=== PATIENT | male | born 1930 | race Caucasian/White ===

== ENCOUNTER 2020-05-14 08:51 | Inpatient (IN) | payer MEDICARE ==
[2020-05-14 10:44] VITALS: BP 124/81
[2020-05-14] MEDS ORDERED: Maalox 30 mL Cup PO PRN (10:46)
[2020-05-14] MEDS ORDERED: Magnesium Hydroxide (MOM) 30 mL UDC PO PRN (10:46)
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
[2020-05-14] MEDS ORDERED: GLUCAGON HCl 1 MG KIT IM PRN (19:57)
[2020-05-14] MEDS: INSULIN LISPRO SLIDING SCALE 100 UNITS/ML UNIT SUBQ SCH (20:58)
[2020-05-14] MEDS ORDERED: INSULIN LISPRO SLIDING SCALE 100 UNITS/ML UNIT SUBQ SCH (21:00)
--- NOTE | 2020-05-14 21:07 | History & Physical ---
ADMIT DATE: HISTORY OF PRESENT ILLNESS: The patient is an 89-year-old male with long history of diabetes mellitus, hypertension, dementia, admitted to [facility] under Dr. Arias's service for evaluation and treatment. The patient denies any chest pain, shortness of breath, nausea, vomiting, fever or chills. PAST MEDICAL HISTORY: Significant for diabetes mellitus, hypertension, gastroesophageal reflux and dementia. PAST SURGICAL HISTORY: No recent surgery. MEDICATIONS: Follow admission reconciliation. ALLERGIES: The patient denies any allergies. SOCIAL HISTORY: No smoking, no alcohol, no drug. FAMILY HISTORY: Noncontributory. REVIEW OF SYSTEMS: RENAL SYSTEM: No history of chronic renal disorder. CARDIOVASCULAR SYSTEM: He has history of hypertension. ENDOCRINE SYSTEM: He has history of diabetes mellitus. GASTROINTESTINAL SYSTEM: Significant for gastroesophageal reflux. NEUROLOGICAL SYSTEM: No seizure disorder. SKELETOMUSCULAR SYSTEM: No muscular dystrophy. HEMATOLOGICAL SYSTEM: No bleeding tendency. RESPIRATORY SYSTEM: No asthma. GENITOURINARY: No dysuria or hematuria. PHYSICAL EXAMINATION: GENERAL: He is awake, alert, mildly confused. VITAL SIGNS: Temperature is 97.4, heart rate 96, blood pressure is 136/68. HEENT: Normocephalic. Pupils reacting equal to light and accommodation. Sclerae clear. NECK: Supple. Negative for lymphadenopathy, JVD or bruit. CHEST: Entry of air bilaterally normal. No rhonchi or wheezing. HEART: S1, S2 normal. No murmurs, rubs or gallop rhythm. ABDOMEN: Soft, bowel sounds positive. EXTREMITIES: No edema. BACK: Normal vertebra. SKIN: Intact. GENITALIA AND RECTAL: No complaint done by primary physician. NEUROLOGIC: He is awake, alert, mildly confused. Cranial nerve #1: The patient is able to smell alcohol prep pad. Cranial nerve #2: The patient is able to read printed page. Cranial nerve #3: The patient is able to move eyeball upward and outward. Cranial nerve #4: The patient is able to move eyeball inward and downward. Cranial nerve #5: The patient able to clench teeth, has normal sensation to the forehead. Cranial nerve #6: The patient is able to move eyeball lateral on both sides. Cranial nerve #7: The patient move eyebrow upwards on both sides. Cranial nerve #8: The patient able to hear finger rubs on both sides. Cranial nerve #9: The patient has a normal gag reflex. Cranial nerve #10: The patient able to move soft palate upward on each side. Cranial nerve #11: The patient able to shrink shoulder on both sides. Cranial nerve # 12: The patient able to stick tongue straight forward. MOTOR AND SENSORY: Gait normal. Romberg normal. Muscle tone normal. Deep tendon reflexes normal. Plantar normal. Fhlmsc-kr-[id number] normal. Afji-im-zxab normal. Sensory normal. ASSESSMENT: 1. Hypertension. 2. Diabetes mellitus. 3. Gastroesophageal reflux. 4. Dementia. PLAN: The patient admitted to the hospital under Dr. Arias's service. Problems addressed during hospitalization are depression, dementia and psychosis. Medical problem addressed at discharge are hypertension, diabetes mellitus. The patient is medically stable for activity. Thank you, Dr. Arias, for asking me to see your patient. The patient will follow up with primary physician upon discharge. The patient is a full code. JOB# [id number]
[2020-05-15] MEDS: INSULIN LISPRO SLIDING SCALE 100 UNITS/ML UNIT SUBQ SCH ×4 (06:34→21:22)
[2020-05-15] MEDS: Pantoprazole 40 mg EC Tab PO SCH (08:19)
[2020-05-15] MEDS: Multivitamin Tab PO SCH (08:20)
[2020-05-15] MEDS: Timolol 0.25% Ophth Soln 5 mL Bottle EACH EYE SCH (08:31)
--- NOTE | 2020-05-15 20:31 | Progress Notes ---
DATE: 05/15/2020 PSYCHIATRIC PROGRESS NOTE Staff was spoken to. The patient is interviewed. Mood is noted to be irritable. Affect is constricted. Insight and judgment at this time are noted to be still impaired. Impulse control is noted to be limited. The patient is reported to have been displaying acute mood swings. One minute, she is going to be so nice; the next minute, he has been screaming and yelling. The patient's staff has spoken to the patient's family and this is the same kind of behavior the family has been experiencing at home and they said that they cannot deal with the patient any longer. In view of this one, it is decided to start the patient with risperidone 0.5 mg at bedtime and continue with the Depakote that he has been taking at 125 mg twice a day and follow the patient up with supportive therapy. The patient is not ready to be discharged to a lower level of care in view of his aggressive behavior and the patient is going to be closely monitored with the Depakote and Risperdal. JOB# [id number]
--- NOTE | 2020-05-15 20:35 | Internal Medicine Prog Note ---
Internal Medicine Subjective - Subjective Service Date: 05/15/20 Patient seen and examined:: without staff (HE FEELS WELL) Patient is:: awake, verbal, in bed, talking, confused Per staff patient has:: no adverse event Internal Medicine Objective - Results Recent Labs: Laboratory Last Values POC Glucose 146 MG/DL (70 - 105) H 05/14/20 09:11 - Physical Exam Vitals and I&O: Vital Signs Temp 99.6 F 05/15/20 14:00 Pulse 83 05/15/20 14:00 Resp 20 05/15/20 14:00 BP 140/79 05/15/20 14:00 Pulse Ox 98 05/15/20 14:00 Intake & Output 05/15/20 05/15/20 05/16/20 06:59 18:59 06:59 Intake Total 360 Output Total 300 Balance 360 -300 Intake: Oral 360 Output: Urine 300 Other: # Voids 2 # Bowel Movements 0 Active Medications: Current Medications Acetaminophen (Tylenol) 650 mg PO Q4H PRN PRN Reason: Pain (Mild 1-3) Stop: 07/13/20 10:45 Acetaminophen (Tylenol Extra Strength) 1,000 mg PO Q6H PRN PRN Reason: Pain (Moderate 4-6) Stop: 07/13/20 10:45 Al Hydrox/Mg Hydrox/Simethicone (Maalox) 30 ml PO Q4HR PRN PRN Reason: GI DISTRESS Stop: 07/13/20 10:45 Dextrose (Glutose 40%) 18.75 gm PO PRN PRN PRN Reason: Blood Glucose less than 70 Stop: 07/13/20 19:56 Divalproex Sodium (Depakote Dr) 125 mg PO Q12HR [facility]; Protocol Stop: 07/14/20 08:59 Last Admin: 05/15/20 13:25 Dose: 125 mg Glucagon (Glucagen) 1 mg IM PRN PRN PRN Reason: Blood Glucose less than 70 Stop: 07/13/20 19:56 Ibuprofen (Motrin) 400 mg PO Q4H PRN PRN Reason: Pain (Severe 7-10) Stop: 07/13/20 10:45 Insulin Human Lispro (Humalog Insulin Sliding Scale) 0 units SUBQ [facility]; Protocol Stop: 07/13/20 20:59 Last Admin: 05/15/20 16:32 Dose: Not Given Losartan Potassium (Cozaar) 100 mg PO DAILY [facility] Stop: 07/14/20 08:59 Last Admin: 05/15/20 08:25 Dose: 100 mg Magnesium Hydroxide (Milk Of Magnesia) 30 ml PO HS PRN PRN Reason: Constipation Multivitamins/Vitamin C (Theragran) 1 tab PO DAILY [facility] Stop: 07/14/20 08:59 Last Admin: 05/15/20 08:20 Dose: 1 tab Pantoprazole Sodium (Protonix) 40 mg PO DAILY [facility] Stop: 07/14/20 08:59 Last Admin: 05/15/20 08:19 Dose: 40 mg Risperidone (Risperdal) 0.5 mg PO HS [facility]; Protocol Stop: 07/14/20 20:59 Sitagliptin Phosphate (Januvia) 100 mg PO DAILY [facility] Stop: 07/14/20 08:59 Last Admin: 05/15/20 08:18 Dose: 100 mg Timolol Maleate (Timoptic 0.25% Oph Soln) 1 drop EACH EYE DAILY [facility] Stop: 07/14/20 08:59 Last Admin: 05/15/20 08:31 Dose: Not Given Zolpidem Tartrate (Ambien) 5 mg PO HS PRN PRN Reason: Insomnia Stop: 07/13/20 10:45 General: alert HEENT: NC/AT, PERRLA, EOMI, anicteric sclerae, throat clear Neck: Supple, No JVD, No thyromegaly, +2 carotid pulse wo bruit, No LAD Lungs: CTAB Cardiovascular: RRR, Normal S1, Normal S2, without murmur Abdomen: soft, non-tender, non-distended Extremities: clear Neurological: no change, gait stable Internal Medicine Assmt/Plan - Assessment Assessment: 1.HTN. 2.DM 3.DJD. 4.DEMENTIA - Plan Plan: CONTINUE ON CURRENT MEDICATION AND DIET
[2020-05-15] MEDS: Acetaminophen 500 MG TAB PO PRN (21:23)
[2020-05-16] MEDS: INSULIN LISPRO SLIDING SCALE 100 UNITS/ML UNIT SUBQ SCH ×4 (06:37→20:55)
[2020-05-16 07:26] LABS: A1C 8.9 % (4.8-5.6)
[2020-05-16] MEDS: Multivitamin Tab PO SCH (09:16)
[2020-05-16] MEDS: Pantoprazole 40 mg EC Tab PO SCH (09:16)
[2020-05-16] MEDS: Timolol 0.25% Ophth Soln 5 mL Bottle EACH EYE SCH (09:18)
--- NOTE | 2020-05-16 11:23 | Progress Notes ---
DATE: 05/16/2020 SUBJECTIVE: Staff was spoken to. The patient is interviewed. Mood is noted to be irritable. Affect is constricted, going on a tangent. Insight and judgment at this time are noted to be still impaired. Impulse control is noted to be limited. Coping skills are noted to be limited. The patient is not able to make much of any sense. The patient is going on a tangent. ASSESSMENT: The patient is still impulsive and psychotic. PLAN: To continue the patient with Risperdal and Depakote and closely monitor the patient's behavior. JOB# [id number]
--- NOTE | 2020-05-16 20:05 | Internal Medicine Prog Note ---
Internal Medicine Subjective - Subjective Service Date: 05/16/20 Patient seen and examined:: without staff (HE FEELS WELL) Patient is:: awake, verbal, in bed, talking, confused Per staff patient has:: no adverse event Internal Medicine Objective - Results Recent Labs: Laboratory Last Values POC Glucose 177 MG/DL (70 - 105) H 05/16/20 16:01 Hemoglobin A1c 8.9 % (4.8-5.6) H 05/14/20 13:20 - Physical Exam Vitals and I&O: Vital Signs Temp 98.3 F 05/16/20 15:17 Pulse 78 05/16/20 15:17 Resp 20 05/16/20 15:17 BP 132/78 05/16/20 15:17 Pulse Ox 95 05/16/20 15:17 Intake & Output 05/16/20 05/16/20 05/17/20 06:59 18:59 06:59 Intake Total 240 950 Balance 240 950 Intake: Oral 240 950 Other: # Voids 2 4 # Bowel Movements 0 0 Active Medications: Current Medications Acetaminophen (Tylenol) 650 mg PO Q4H PRN PRN Reason: Pain (Mild 1-3) Stop: 07/13/20 10:45 Acetaminophen (Tylenol Extra Strength) 1,000 mg PO Q6H PRN PRN Reason: Pain (Moderate 4-6) Stop: 07/13/20 10:45 Last Admin: 05/15/20 21:23 Dose: 1,000 mg Al Hydrox/Mg Hydrox/Simethicone (Maalox) 30 ml PO Q4HR PRN PRN Reason: GI DISTRESS Stop: 07/13/20 10:45 Dextrose (Glutose 40%) 18.75 gm PO PRN PRN PRN Reason: BS Below 70 if tolerate po Stop: 07/13/20 19:56 Divalproex Sodium (Depakote Dr) 125 mg PO Q12HR [facility]; Protocol Stop: 07/14/20 08:59 Last Admin: 05/16/20 09:18 Dose: 125 mg Glucagon (Glucagen) 1 mg IM PRN PRN PRN Reason: BS Below 70 if not tolerate po Stop: 07/13/20 19:56 Ibuprofen (Motrin) 400 mg PO Q4H PRN PRN Reason: Pain (Severe 7-10) Stop: 07/13/20 10:45 Insulin Human Lispro (Humalog Insulin Sliding Scale) 0 units SUBQ [facility]; Protocol Stop: 07/13/20 20:59 Last Admin: 05/16/20 16:21 Dose: 2 units Losartan Potassium (Cozaar) 100 mg PO DAILY [facility] Stop: 07/14/20 08:59 Last Admin: 05/16/20 09:16 Dose: 100 mg Magnesium Hydroxide (Milk Of Magnesia) 30 ml PO HS PRN PRN Reason: Constipation Multivitamins/Vitamin C (Theragran) 1 tab PO DAILY [facility] Stop: 07/14/20 08:59 Last Admin: 05/16/20 09:16 Dose: 1 tab Pantoprazole Sodium (Protonix) 40 mg PO DAILY [facility] Stop: 07/14/20 08:59 Last Admin: 05/16/20 09:16 Dose: 40 mg Risperidone (Risperdal) 0.5 mg PO HS [facility]; Protocol Stop: 07/14/20 20:59 Last Admin: 05/15/20 21:22 Dose: 0.5 mg Sitagliptin Phosphate (Januvia) 100 mg PO DAILY [facility] Stop: 07/14/20 08:59 Last Admin: 05/16/20 09:17 Dose: 100 mg Timolol Maleate (Timoptic 0.25% Oph Soln) 1 drop EACH EYE DAILY [facility] Stop: 07/14/20 08:59 Last Admin: 05/16/20 09:18 Dose: Not Given Zolpidem Tartrate (Ambien) 5 mg PO HS PRN PRN Reason: Insomnia Stop: 07/13/20 10:45 Last Admin: 05/15/20 21:24 Dose: 5 mg General: alert HEENT: NC/AT, PERRLA, EOMI, anicteric sclerae, throat clear Neck: Supple, No JVD, No thyromegaly, +2 carotid pulse wo bruit, No LAD Lungs: CTAB Cardiovascular: RRR, Normal S1, Normal S2, without murmur Abdomen: soft, non-tender, non-distended Extremities: clear Neurological: no change, gait stable Internal Medicine Assmt/Plan - Assessment Assessment: 1.HTN. 2.DM 3.DJD. 4.DEMENTIA - Plan Plan: CONTINUE ON CURRENT MEDICATION AND DIET
[2020-05-17] MEDS: INSULIN LISPRO SLIDING SCALE 100 UNITS/ML UNIT SUBQ SCH ×4 (06:30→20:56)
[2020-05-17] MEDS: Pantoprazole 40 mg EC Tab PO SCH (08:28)
[2020-05-17] MEDS: Multivitamin Tab PO SCH (08:28)
[2020-05-17] MEDS: Timolol 0.25% Ophth Soln 5 mL Bottle EACH EYE SCH (08:29)
[2020-05-17 10:30] LABS: CHOLESTEROL 224 mg/dL (<200); LDL CHOLESTEROL 161 mg/dL (0-129); TRIGLYCERIDES 178 mg/dL (30-150)
--- NOTE | 2020-05-17 20:34 | Internal Medicine Prog Note ---
Internal Medicine Subjective - Subjective Service Date: 05/17/20 Patient seen and examined:: without staff (HE FEELS WELL) Patient is:: awake, verbal, in bed, talking, confused Per staff patient has:: no adverse event Internal Medicine Objective - Results Recent Labs: Laboratory Last Values POC Glucose 133 MG/DL (70 - 105) H 05/17/20 20:13 Hemoglobin A1c 8.9 % (4.8-5.6) H 05/14/20 13:20 Triglycerides 178 mg/dL (30-150) H 05/14/20 13:20 Cholesterol 224 mg/dL (<200) H 05/14/20 13:20 LDL Cholesterol 161 mg/dL (0-129) H 05/14/20 13:20 HDL Cholesterol 40 mg/dL (>45) L 05/14/20 13:20 Coronavirus (PCR) NOT DETECTED (NOT DETECTD) 05/14/20 11:50 - Physical Exam Vitals and I&O: Vital Signs Temp 96.4 F 05/17/20 14:36 Pulse 84 05/17/20 14:36 Resp 20 05/17/20 14:36 BP 133/76 05/17/20 14:36 Pulse Ox 93 05/17/20 14:36 Intake & Output 05/17/20 05/17/20 05/18/20 06:59 18:59 06:59 Intake Total 240 Output Total 1 Balance 239 Intake: Oral 240 Output: Urine/Stool Mix 1 Other: # Voids 1 Active Medications: Current Medications Acetaminophen (Tylenol) 650 mg PO Q4H PRN PRN Reason: Pain (Mild 1-3) Stop: 07/13/20 10:45 Acetaminophen (Tylenol Extra Strength) 1,000 mg PO Q6H PRN PRN Reason: Pain (Moderate 4-6) Stop: 07/13/20 10:45 Last Admin: 05/15/20 21:23 Dose: 1,000 mg Al Hydrox/Mg Hydrox/Simethicone (Maalox) 30 ml PO Q4HR PRN PRN Reason: GI DISTRESS Stop: 07/13/20 10:45 Dextrose (Glutose 40%) 18.75 gm PO PRN PRN PRN Reason: BS Below 70 if tolerate po Stop: 07/13/20 19:56 Divalproex Sodium (Depakote Dr) 125 mg PO Q12HR [facility]; Protocol Stop: 07/14/20 08:59 Last Admin: 05/17/20 08:28 Dose: 125 mg Glucagon (Glucagen) 1 mg IM PRN PRN PRN Reason: BS Below 70 if not tolerate po Stop: 07/13/20 19:56 Ibuprofen (Motrin) 400 mg PO Q4H PRN PRN Reason: Pain (Severe 7-10) Stop: 07/13/20 10:45 Insulin Human Lispro (Humalog Insulin Sliding Scale) 0 units SUBQ [facility]; Protocol Stop: 07/13/20 20:59 Last Admin: 05/17/20 16:27 Dose: 4 units Losartan Potassium (Cozaar) 100 mg PO DAILY [facility] Stop: 07/14/20 08:59 Last Admin: 05/17/20 08:28 Dose: 100 mg Magnesium Hydroxide (Milk Of Magnesia) 30 ml PO HS PRN PRN Reason: Constipation Multivitamins/Vitamin C (Theragran) 1 tab PO DAILY [facility] Stop: 07/14/20 08:59 Last Admin: 05/17/20 08:28 Dose: 1 tab Pantoprazole Sodium (Protonix) 40 mg PO DAILY [facility] Stop: 07/14/20 08:59 Last Admin: 05/17/20 08:28 Dose: 40 mg Risperidone (Risperdal) 0.5 mg PO HS [facility]; Protocol Stop: 07/14/20 20:59 Last Admin: 05/16/20 20:56 Dose: 0.5 mg Sitagliptin Phosphate (Januvia) 100 mg PO DAILY [facility] Stop: 07/14/20 08:59 Last Admin: 05/17/20 08:28 Dose: 100 mg Timolol Maleate (Timoptic 0.25% Ophth Soln) 1 drop EACH EYE DAILY [facility] Stop: 07/14/20 08:59 Last Admin: 05/17/20 08:29 Dose: Not Given Zolpidem Tartrate (Ambien) 5 mg PO HS PRN PRN Reason: Insomnia Stop: 07/13/20 10:45 Last Admin: 05/15/20 21:24 Dose: 5 mg General: alert HEENT: NC/AT, PERRLA, EOMI, anicteric sclerae, throat clear Neck: Supple, No JVD, No thyromegaly, +2 carotid pulse wo bruit, No LAD Lungs: CTAB Cardiovascular: RRR, Normal S1, Normal S2, without murmur Abdomen: soft, non-tender, non-distended Extremities: clear Neurological: no change, gait stable Internal Medicine Assmt/Plan - Assessment Assessment: 1.HTN. 2.DM 3.DJD. 4.DEMENTIA - Plan Plan: CONTINUE ON CURRENT MEDICATION AND DIET
--- NOTE | 2020-05-17 22:55 | Progress Notes ---
DATE: 05/17/2020 PSYCHIATRIC PROGRESS NOTE SUBJECTIVE: Staff was spoken to. The patient is interviewed. Mood is noted to be irritable. Affect is constricted. Coping skills at this time are noted to be very poor. The patient has been having difficult time to cope with the stress. No side effects to the medications are noted. The patient is still very paranoid. Mood swings are being closely monitored for this patient. The patient has been noted to be getting easily irritable at times. ASSESSMENT: The patient is still paranoid and mood swings are a problem. PLAN: To continue the patient with the current medications and follow up. JOB# [id number]
[2020-05-18] MEDS: INSULIN LISPRO SLIDING SCALE 100 UNITS/ML UNIT SUBQ SCH ×4 (06:33→20:12)
[2020-05-18] MEDS: Pantoprazole 40 mg EC Tab PO SCH (08:54)
[2020-05-18] MEDS: Multivitamin Tab PO SCH (08:54)
[2020-05-18] MEDS: Timolol 0.25% Ophth Soln 5 mL Bottle EACH EYE SCH (09:00)
--- NOTE | 2020-05-18 21:00 | Progress Notes ---
DATE: 05/18/2020 Staff was spoken to. The patient is interviewed. Mood is noted to be irritable. Affect is constricted. Insight and judgment at this time are noted to be still impaired. Impulse control is noted to be limited. Coping skills are also noted to be limited. The patient has been having acute mood swings. The patient, however, is on a mood stabilizer and antipsychotic medication and has been able to tolerate the medication. Aggressive behavior is being closely monitored at this time. JOB# [id number]
--- NOTE | 2020-05-18 21:05 | Internal Medicine Prog Note ---
Internal Medicine Subjective - Subjective Service Date: 05/18/20 Patient seen and examined:: without staff (HE FEELS BETTER) Patient is:: awake, verbal, in bed, talking, confused Per staff patient has:: no adverse event Internal Medicine Objective - Results Recent Labs: Laboratory Last Values POC Glucose 217 MG/DL (70 - 105) H 05/18/20 19:38 Hemoglobin A1c 8.9 % (4.8-5.6) H 05/14/20 13:20 Triglycerides 178 mg/dL (30-150) H 05/14/20 13:20 Cholesterol 224 mg/dL (<200) H 05/14/20 13:20 LDL Cholesterol 161 mg/dL (0-129) H 05/14/20 13:20 HDL Cholesterol 40 mg/dL (>45) L 05/14/20 13:20 Coronavirus (PCR) NOT DETECTED (NOT DETECTD) 05/14/20 11:50 - Physical Exam Vitals and I&O: Vital Signs Temp 97.5 F 05/18/20 20:00 Pulse 63 05/18/20 20:00 Resp 18 05/18/20 20:00 BP 139/66 05/18/20 20:00 Pulse Ox 96 05/18/20 20:00 Intake & Output 05/18/20 05/18/20 05/19/20 06:59 18:59 06:59 Intake Total 240 1200 Output Total 1 Balance 239 1200 Intake: Oral 240 1200 Output: Urine/Stool Mix 1 Other: # Voids 1 3 # Bowel Movements 0 Stool Characteristics Formed Active Medications: Current Medications Acetaminophen (Tylenol) 650 mg PO Q4H PRN PRN Reason: Pain (Mild 1-3) Stop: 07/13/20 10:45 Acetaminophen (Tylenol Extra Strength) 1,000 mg PO Q6H PRN PRN Reason: Pain (Moderate 4-6) Stop: 07/13/20 10:45 Last Admin: 05/15/20 21:23 Dose: 1,000 mg Al Hydrox/Mg Hydrox/Simethicone (Maalox) 30 ml PO Q4HR PRN PRN Reason: GI DISTRESS Stop: 07/13/20 10:45 Dextrose (Glutose 40%) 18.75 gm PO PRN PRN PRN Reason: BS Below 70 if tolerate po Stop: 07/13/20 19:56 Divalproex Sodium (Depakote Dr) 125 mg PO Q12HR [facility]; Protocol Stop: 07/14/20 08:59 Last Admin: 05/18/20 20:12 Dose: 125 mg Glucagon (Glucagen) 1 mg IM PRN PRN PRN Reason: BS Below 70 if not tolerate po Stop: 07/13/20 19:56 Ibuprofen (Motrin) 400 mg PO Q4H PRN PRN Reason: Pain (Severe 7-10) Stop: 07/13/20 10:45 Last Admin: 05/18/20 07:48 Dose: 400 mg Insulin Human Lispro (Humalog Insulin Sliding Scale) 0 units SUBQ ACHS [facility]; Protocol Stop: 07/13/20 20:59 Last Admin: 05/18/20 20:12 Dose: 4 units Losartan Potassium (Cozaar) 100 mg PO DAILY [facility] Stop: 07/14/20 08:59 Last Admin: 05/18/20 08:54 Dose: 100 mg Magnesium Hydroxide (Milk Of Magnesia) 30 ml PO HS PRN PRN Reason: Constipation Multivitamins/Vitamin C (Theragran) 1 tab PO DAILY [facility] Stop: 07/14/20 08:59 Last Admin: 05/18/20 08:54 Dose: 1 tab Pantoprazole Sodium (Protonix) 40 mg PO DAILY [facility] Stop: 07/14/20 08:59 Last Admin: 05/18/20 08:54 Dose: 40 mg Risperidone (Risperdal) 0.5 mg PO HS [facility]; Protocol Stop: 07/14/20 20:59 Last Admin: 05/18/20 20:12 Dose: 0.5 mg Sitagliptin Phosphate (Januvia) 100 mg PO DAILY [facility] Stop: 07/14/20 08:59 Last Admin: 05/18/20 08:54 Dose: 100 mg Timolol Maleate (Timoptic 0.25% Ophth Soln) 1 drop EACH EYE DAILY [facility] Stop: 07/14/20 08:59 Last Admin: 05/18/20 09:00 Dose: 1 drop Zolpidem Tartrate (Ambien) 5 mg PO HS PRN PRN Reason: Insomnia Stop: 07/13/20 10:45 Last Admin: 05/15/20 21:24 Dose: 5 mg General: alert HEENT: NC/AT, PERRLA, EOMI, anicteric sclerae, throat clear Neck: Supple, No JVD, No thyromegaly, +2 carotid pulse wo bruit, No LAD Lungs: CTAB Cardiovascular: RRR, Normal S1, Normal S2, without murmur Abdomen: soft, non-tender, non-distended Extremities: clear Neurological: no change, gait stable Internal Medicine Assmt/Plan - Assessment Assessment: 1.HTN. 2.DM 3.DJD. 4.DEMENTIA - Plan Plan: CONTINUE ON CURRENT MEDICATION AND DIET Nutritional Asmnt/Malnutr-PDOC - Dietary Evaluation Malnutrition Findings (Please click <Entered> for more info): Nutritional Asmnt/Malnutrition Start: 05/18/20 14: 32 Text: Status: Complete Freq: Protocol: Document 05/18/20 14:33 KEITH (Rec: 05/18/20 14:37 KEITH [email or web address] [id number]) Nutritional Asmnt/Malnutrition Patient General Information Nutritional Screening Moderate Risk Diagnosis Acute Psychosis Pertinent Medical Hx/Surgical Hx HTN, DM, GERD, Dementia Subjective Information Pt is a 89-year-old male admitted on 05/14 d/t agitation and threats at home. Pt is eating an estimated 58% of meals since admit date (x4 days) Per Meal/Nutrition Activity Record. Dietary is currently providing an estimated 1900 kcals and 105 gm Pro, per Pt PO intake this is providing an estimated 1100 kcals and 60gm Pro to meet 70 % kcal and 94% Pro needs. Visited pt in room, he said food was fine, as good as it can be. 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 Anthropometrics HT: 59 WT: 142 LB (64.55 kg) BMI: 21.0 (normal) GI/ Skin Integrity GI: WNL, Soft, Flat, Non- tender BM: Not Noted I/O: 240/1 (+239) Skin: WNL Intact Venkatesh: 16 Diet Order: CCHO 75gm, Ground Estimated Energy Needs: ( Geriatric, CBW) 4191-9037 kcals (25-30 kcals/ kg) 65-80g Pro (1.0-1.2 g/kg) 4238-9136 ml (25-30 ml/kg) Current Diet Order/ Nutrition Support CCHO 75gm, Ground Pertinent Medications Maalox (PRN), Glutose 40% (PRN ), Glucagen (PRN), INS-SS, MOM (PRN), Theragran, Protonix, Cozaar, Januvia Pertinent Labs 05/14: Chol 224, Trig 178, LDL 161, HDL 40 POC Glucose (last 24 hours): 105, 223, 210, 133, 175 05/06: Glucose 136, AST 14 Nutritional Hx/Data Height 1.75 m Height (Calculated Centimeters) 175.3 Current Weight (lbs) 64.41 kg Weight (Calculated Kilograms) 64.4 Weight (Calculated Grams) 44928.1 [place] Body Weight 160 LB (72.73 kg) % [place] Body Weight 89 Body Mass Index (BMI) 20.9 Weight Status Approriate GI Symptoms Last BM Not Noted Skin Integrity/Comment: Skin: WNL Intact Venkatesh: 16 Current %PO Fair (50-74%) Estimated Nutritional Goals BEE in Kcals: Using Current wt Calories/Kcals/Kg 25-30 Kcals Calculated 6560-4609 Protein: Using Current wt Protein g/k.0-1.2 Protein Calculated 65-80 Fluid: ml 0788-8556 ml (25-30 ml/kg) Nutritional Problem 1. Problem Problem Impaired nutrient utilization Etiology r/t endocrine dysfunction Signs/Symptoms: aeb Hx DM and POC Glucose ( last 24 hours): 105, 223, 210, 133, 175. Malnutrition Related to Morbid Obesity Malnutrition related to morbid obesity No Intervention/Recommendation Comments 1.Continue CCHO 75gm, Ground diet as tolerated. 2.Continue antihyperglycemic medications for glucose control per MD order. Expected Outcomes/Goals Expected Outcomes/Goals 1.PO intake to meet 75% of estimated nutritional needs. 2.Monitor PO intake, wt, nutrition related labs, and skin integrity. 3.F/U as low risk in 7-10 days , 05/25-05/28.
[2020-05-19] MEDS: INSULIN LISPRO SLIDING SCALE 100 UNITS/ML UNIT SUBQ SCH ×4 (06:34→20:26)
[2020-05-19] MEDS: Timolol 0.25% Ophth Soln 5 mL Bottle EACH EYE SCH (08:33)
[2020-05-19] MEDS: Pantoprazole 40 mg EC Tab PO SCH (08:34)
[2020-05-19] MEDS: Multivitamin Tab PO SCH (08:34)
--- NOTE | 2020-05-19 15:49 | Consultation ---
DATE OF CONSULTATION: 05/16/2020 TYPE OF CONSULTATION: Psychology. HISTORY OF PRESENT ILLNESS: The patient is an 89-year-old male. The following is by review of the medical record and by the patient's self- report. The patient is being admitted due to agitation as well as verbal threats to burn his house down. The admission narrative includes the patient's stating that the patient could no longer be maintained or treated at home. The patient has been placed on a 5150. Upon interview, the patient is going off on a tangent and is cognitively unredirectable. It appears that at the time of this interview, the patient is confused about his admission as well as very agitated and irritable. The patient did not answer any other clinical questions at the time of this initial meeting until the mental status examination. PAST MEDICAL HISTORY: Please see history and physical by Dr. Gaines. PAST PSYCHIATRIC HISTORY: Records are unavailable. Details are unknown. SUBSTANCE ABUSE HISTORY: The patient did not answer these questions. BRIEF PSYCHOSOCIAL HISTORY: The patient lives with his . 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 The patient became confused after that and his answers were incoherent and irrelevant. He did not answer questions about educational history or christian affiliation. The patient did not answer questions about any history of physical or sexual abuse or any current legal problems. The patient expects to return home. MENTAL STATUS EXAMINATION: The patient appears to be his stated age. The patient's attitude is superficially cooperative. Eye contact is poor. Speech is pressured and rambling. Mood is irritable. Affect is constricted. Thought process shows to be markedly tangential and unredirectable cognitively. The patient is verbalizing word salad and mostly irrelevant responses to the clinical questions. The patient is confused. The patient did not answer questions about experiencing auditory or visual hallucinations. The patient denied any suicidal ideation, plan or intention or any homicidal ideation, plan or intention. When asked if he had threatened to burn his house down in order to hurt his , the patient denied this and became irritable and defensive. The patient's behavior has been difficult to redirect on the unit and difficult to deescalate, however, he is mostly bedbound. Impulse control is limited and somewhat impaired. The patient did not participate in the memory assessment ; however, there are apparent memory deficits and cognitive deficits. Concentration is poor. Long-term memory seems to be impaired as well as short-term memory. This needs further evaluation. The patient's estimation of general intellectual functioning is of average intelligence. The patient did not participate in the interpretation of proverbs. Sensorium is alert and oriented to self and place only. Insight is impaired. Judgment is impaired. DIAGNOSTIC IMPRESSION: AXIS I: 1. Dementia with behavioral disturbance. 2. Psychosis, unspecified. AXIS II: Deferred. AXIS III: Per Dr. Gaines. TREATMENT PLAN: The patient has been seen by Dr. Arias for psychiatric evaluation for the patient's management of his psychotropic medications. The record review indicates the patient is being continued on valproic acid. It will be determined whether antipsychotic medications are needed by the attending psychiatrist. We will provide supportive psychotherapy to include reality orientation, differentiation and integration. We will provide de-escalation and limit setting. We will provide motivational enhancement for the patient to become compliant and stay compliant with all aspects of his care and treatment. We will encourage the patient to verbalize his concerns. We will provide coping strategies for phase of life issues as well. We will provide daily opportunities for the patient to verbally contract for safety, i.e., no harm to others. The patient has verbalized threats to burn his house down and threats towards his . Discharge criteria is based on when the patient is no longer a threat to self or others and that he is able to verbalize coping mechanisms with the stress and is able to follow through with treatment recommendations. We will encourage the patient also to consider possible placement in a [facility] facility versus returning home. The attending psychiatrist and case filler will discuss this with the patient's family. Thank you, Dr. Arias, for this consult and the opportunity to participate with you in this patient's care. JOB# [id number] ABELARDO
--- NOTE | 2020-05-19 19:36 | Internal Medicine Prog Note ---
Internal Medicine Subjective - Subjective Service Date: 05/19/20 Patient seen and examined:: without staff (HE FEES WELL) Patient is:: awake, verbal, in bed, talking, confused Per staff patient has:: no adverse event Internal Medicine Objective - Results Recent Labs: Laboratory Last Values POC Glucose 179 MG/DL (70 - 105) H 05/19/20 16:51 Hemoglobin A1c 8.9 % (4.8-5.6) H 05/14/20 13:20 Triglycerides 178 mg/dL (30-150) H 05/14/20 13:20 Cholesterol 224 mg/dL (<200) H 05/14/20 13:20 LDL Cholesterol 161 mg/dL (0-129) H 05/14/20 13:20 HDL Cholesterol 40 mg/dL (>45) L 05/14/20 13:20 Coronavirus (PCR) NOT DETECTED (NOT DETECTD) 05/14/20 11:50 - Physical Exam Vitals and I&O: Vital Signs Temp 97.0 F 05/19/20 14:00 Pulse 77 05/19/20 14:00 Resp 20 05/19/20 14:00 BP 143/93 05/19/20 14:00 Pulse Ox 97 05/19/20 14:00 Intake & Output 05/19/20 05/19/20 05/20/20 06:59 18:59 06:59 Intake Total 120 1100 Balance 120 1100 Intake: Oral 120 1100 Other: # Voids 3 3 # Bowel Movements 0 Stool Characteristics Formed Active Medications: Current Medications Acetaminophen (Tylenol) 650 mg PO Q4H PRN PRN Reason: Pain (Mild 1-3) Stop: 07/13/20 10:45 Acetaminophen (Tylenol Extra Strength) 1,000 mg PO Q6H PRN PRN Reason: Pain (Moderate 4-6) Stop: 07/13/20 10:45 Last Admin: 05/15/20 21:23 Dose: 1,000 mg Al Hydrox/Mg Hydrox/Simethicone (Maalox) 30 ml PO Q4HR PRN PRN Reason: GI DISTRESS Stop: 07/13/20 10:45 Dextrose (Glutose 40%) 18.75 gm PO PRN PRN PRN Reason: BS Below 70 if tolerate po Stop: 07/13/20 19:56 Glucagon (Glucagen) 1 mg IM PRN PRN PRN Reason: BS Below 70 if not tolerate po Stop: 07/13/20 19:56 Ibuprofen (Motrin) 400 mg PO Q4H PRN PRN Reason: Pain (Severe 7-10) Stop: 07/13/20 10:45 Last Admin: 05/18/20 07:48 Dose: 400 mg Insulin Human Lispro (Humalog Insulin Sliding Scale) 0 units SUBQ ACHS [facility]; Protocol Stop: 07/13/20 20:59 Last Admin: 05/19/20 17:00 Dose: 2 units Losartan Potassium (Cozaar) 100 mg PO DAILY [facility] Stop: 07/14/20 08:59 Last Admin: 05/19/20 08:33 Dose: Not Given Magnesium Hydroxide (Milk Of Magnesia) 30 ml PO HS PRN PRN Reason: Constipation Multivitamins/Vitamin C (Theragran) 1 tab PO DAILY [facility] Stop: 07/14/20 08:59 Last Admin: 05/19/20 08:34 Dose: 1 tab Pantoprazole Sodium (Protonix) 40 mg PO DAILY [facility] Stop: 07/14/20 08:59 Last Admin: 05/19/20 08:34 Dose: 40 mg Sitagliptin Phosphate (Januvia) 100 mg PO DAILY [facility] Stop: 07/14/20 08:59 Last Admin: 05/19/20 08:34 Dose: 100 mg Timolol Maleate (Timoptic 0.25% Ophth Soln) 1 drop EACH EYE DAILY [facility] Stop: 07/14/20 08:59 Last Admin: 05/19/20 08:33 Dose: 1 drop Zolpidem Tartrate (Ambien) 5 mg PO HS PRN PRN Reason: Insomnia Stop: 07/13/20 10:45 Last Admin: 05/15/20 21:24 Dose: 5 mg General: alert HEENT: NC/AT, PERRLA, EOMI, anicteric sclerae, throat clear Neck: Supple, No JVD, No thyromegaly, +2 carotid pulse wo bruit, No LAD Lungs: CTAB Cardiovascular: RRR, Normal S1, Normal S2, without murmur Abdomen: soft, non-tender, non-distended Extremities: clear Neurological: no change, gait stable Internal Medicine Assmt/Plan - Assessment Assessment: 1.HTN. 2.DM 3.DJD. 4.DEMENTIA - Plan Plan: CONTINUE ON CURRENT MEDICATION AND DIET Nutritional Asmnt/Malnutr-PDOC - Dietary Evaluation Malnutrition Findings (Please click <Entered> for more info): Nutritional Asmnt/Malnutrition Start: 05/18/20 14: 32 Text: Status: Complete Freq: Protocol: Document 05/18/20 14:33 KEITH (Rec: 05/18/20 14:37 KEITH [email or web address]) Nutritional Asmnt/Malnutrition Patient General Information Nutritional Screening Moderate Risk Diagnosis Acute Psychosis Pertinent Medical Hx/Surgical Hx HTN, DM, GERD, Dementia Subjective Information Pt is a 89-year-old male admitted on 05/14 d/t agitation and threats at home. Pt is eating an estimated 58% of meals since admit date (x4 days) Per Meal/Nutrition Activity Record. Dietary is currently providing an estimated 1900 kcals and 105 gm Pro, per Pt PO intake this is providing an estimated 1100 kcals and 60gm Pro to meet 70 % kcal and 94% Pro needs. Visited pt in room, he said food was fine, as good as it can be. 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 Anthropometrics HT: 59 WT: 142 LB (64.55 kg) BMI: 21.0 (normal) GI/ Skin Integrity GI: WNL, Soft, Flat, Non- tender BM: Not Noted I/O: 240/1 (+239) Skin: WNL Intact Venkatesh: 16 Diet Order: CCHO 75gm, Ground Estimated Energy Needs: ( Geriatric, CBW) 8865-0132 kcals (25-30 kcals/ kg) 65-80g Pro (1.0-1.2 g/kg) 1833-5441 ml (25-30 ml/kg) Current Diet Order/ Nutrition Support CCHO 75gm, Ground Pertinent Medications Maalox (PRN), Glutose 40% (PRN ), Glucagen (PRN), INS-SS, MOM (PRN), Theragran, Protonix, Cozaar, Januvia Pertinent Labs 05/14: Chol 224, Trig 178, LDL 161, HDL 40 POC Glucose (last 24 hours): 105, 223, 210, 133, 175 05/06: Glucose 136, AST 14 Nutritional Hx/Data Height 1.75 m Height (Calculated Centimeters) 175.3 Current Weight (lbs) 64.41 kg Weight (Calculated Kilograms) 64.4 Weight (Calculated Grams) 19920.1 [place] Body Weight 160 LB (72.73 kg) % [place] Body Weight 89 Body Mass Index (BMI) 20.9 Weight Status Approriate GI Symptoms Last BM Not Noted Skin Integrity/Comment: Skin: WNL Intact Venkatesh: 16 Current %PO Fair (50-74%) Estimated Nutritional Goals BEE in Kcals: Using Current wt Calories/Kcals/Kg 25-30 Kcals Calculated 3311-6900 Protein: Using Current wt Protein g/k.0-1.2 Protein Calculated 65-80 Fluid: ml 7983-9362 ml (25-30 ml/kg) Nutritional Problem 1. Problem Problem Impaired nutrient utilization Etiology r/t endocrine dysfunction Signs/Symptoms: aeb Hx DM and POC Glucose ( last 24 hours): 105, 223, 210, 133, 175. Malnutrition Related to Morbid Obesity Malnutrition related to morbid obesity No Intervention/Recommendation Comments 1.Continue CCHO 75gm, Ground diet as tolerated. 2.Continue antihyperglycemic medications for glucose control per MD order. Expected Outcomes/Goals Expected Outcomes/Goals 1.PO intake to meet 75% of estimated nutritional needs. 2.Monitor PO intake, wt, nutrition related labs, and skin integrity. 3.F/U as low risk in 7-10 days , 05/25-05/28.
[2020-05-20] MEDS: INSULIN LISPRO SLIDING SCALE 100 UNITS/ML UNIT SUBQ SCH ×4 (06:39→21:34)
--- NOTE | 2020-05-20 07:59 | Progress Notes ---
DATE: 05/19/2020 SUBJECTIVE: Staff was spoken to. The patient is interviewed. Mood is noted to be depressed. Affect is constricted. The patient is isolative and withdrawn. The patient is not able to participate in the individual groups. The patient is very groggy and no major behavioral problems are noted. In view of the patient's grogginess and tiredness it is decided to hold off the psychotropic medications and observe the patient. ASSESSMENT: The patient is demented and he is being closely monitored for aggressive behavior. PLAN: To continue the patient with the supportive therapy, encouraged the patient to verbalize the concerns. JOB# [id number]
[2020-05-20] MEDS: Multivitamin Tab PO SCH (09:13)
[2020-05-20] MEDS: Pantoprazole 40 mg EC Tab PO SCH (09:13)
[2020-05-20] MEDS: Timolol 0.25% Ophth Soln 5 mL Bottle EACH EYE SCH (09:59)
--- NOTE | 2020-05-20 17:13 | Progress Notes ---
DATE: 05/20/2020 PSYCHIATRIC PROGRESS NOTE SUBJECTIVE: Staff was spoken to. The patient is interviewed. The patient's has been spoken to in detail. The patient's has been mentioning that she is not able to care for the patient and she wants the patient to be placed and she was informed that the patient is going to be possibly going to the [facility] in [place] and the patient is stating that she is in [place] and then it is going to be possibility for her to go there and to visit her . At this time, the patient is being closely monitored and no behavioral problems are noted. No major aggressive behavior is noted, but the patient has been very drowsy and hence I have discontinued the medications and closely monitoring the patient. JOB# [id number]
--- NOTE | 2020-05-20 20:07 | Internal Medicine Prog Note ---
Internal Medicine Subjective - Subjective Service Date: 05/20/20 Patient seen and examined:: without staff (HE FEELS WELL) Patient is:: awake, verbal, in bed, talking, confused Per staff patient has:: no adverse event Internal Medicine Objective - Results Recent Labs: Laboratory Last Values POC Glucose 186 MG/DL (70 - 105) H 05/20/20 16:39 Hemoglobin A1c 8.9 % (4.8-5.6) H 05/14/20 13:20 Triglycerides 178 mg/dL (30-150) H 05/14/20 13:20 Cholesterol 224 mg/dL (<200) H 05/14/20 13:20 LDL Cholesterol 161 mg/dL (0-129) H 05/14/20 13:20 HDL Cholesterol 40 mg/dL (>45) L 05/14/20 13:20 Coronavirus (PCR) NOT DETECTED (NOT DETECTD) 05/14/20 11:50 - Physical Exam Vitals and I&O: Vital Signs Temp 96.5 F 05/20/20 14:00 Pulse 76 05/20/20 14:00 Resp 18 05/20/20 14:00 BP 121/72 05/20/20 14:00 Pulse Ox 98 05/20/20 14:00 Intake & Output 05/20/20 05/20/20 05/21/20 06:59 18:59 06:59 Intake Total 240 900 Balance 240 900 Intake: Oral 240 900 Other: # Voids 2 3 # Bowel Movements 1 Stool Characteristics Formed Active Medications: Current Medications Acetaminophen (Tylenol) 650 mg PO Q4H PRN PRN Reason: Pain (Mild 1-3) Stop: 07/13/20 10:45 Acetaminophen (Tylenol Extra Strength) 1,000 mg PO Q6H PRN PRN Reason: Pain (Moderate 4-6) Stop: 07/13/20 10:45 Last Admin: 05/15/20 21:23 Dose: 1,000 mg Al Hydrox/Mg Hydrox/Simethicone (Maalox) 30 ml PO Q4HR PRN PRN Reason: GI DISTRESS Stop: 07/13/20 10:45 Dextrose (Glutose 40%) 18.75 gm PO PRN PRN PRN Reason: BS Below 70 if tolerate po Stop: 07/13/20 19:56 Glucagon (Glucagen) 1 mg IM PRN PRN PRN Reason: BS Below 70 if not tolerate po Stop: 07/13/20 19:56 Ibuprofen (Motrin) 400 mg PO Q4H PRN PRN Reason: Pain (Severe 7-10) Stop: 07/13/20 10:45 Last Admin: 05/18/20 07:48 Dose: 400 mg Insulin Human Lispro (Humalog Insulin Sliding Scale) 0 units SUBQ ACHS [facility]; Protocol Stop: 07/13/20 20:59 Last Admin: 05/20/20 16:49 Dose: 2 units Losartan Potassium (Cozaar) 100 mg PO DAILY [facility] Stop: 07/14/20 08:59 Last Admin: 05/20/20 09:13 Dose: 100 mg Magnesium Hydroxide (Milk Of Magnesia) 30 ml PO HS PRN PRN Reason: Constipation Multivitamins/Vitamin C (Theragran) 1 tab PO DAILY [facility] Stop: 07/14/20 08:59 Last Admin: 05/20/20 09:13 Dose: 1 tab Pantoprazole Sodium (Protonix) 40 mg PO DAILY [facility] Stop: 07/14/20 08:59 Last Admin: 05/20/20 09:13 Dose: 40 mg Sitagliptin Phosphate (Januvia) 100 mg PO DAILY [facility] Stop: 07/14/20 08:59 Last Admin: 05/20/20 09:13 Dose: 100 mg Timolol Maleate (Timoptic 0.25% Oph Soln) 1 drop EACH EYE DAILY [facility] Stop: 07/14/20 08:59 Last Admin: 05/20/20 09:59 Dose: 1 drop Zolpidem Tartrate (Ambien) 5 mg PO HS PRN PRN Reason: Insomnia Stop: 07/13/20 10:45 Last Admin: 05/15/20 21:24 Dose: 5 mg General: alert HEENT: NC/AT, PERRLA, EOMI, anicteric sclerae, throat clear Neck: Supple, No JVD, No thyromegaly, +2 carotid pulse wo bruit, No LAD Lungs: CTAB Cardiovascular: RRR, Normal S1, Normal S2, without murmur Abdomen: soft, non-tender, non-distended Extremities: clear Neurological: no change, gait stable Internal Medicine Assmt/Plan - Assessment Assessment: 1.HTN. 2.DM 3.DJD. 4.DEMENTIA - Plan Plan: CONTINUE ON CURRENT MEDICATION AND DIET Nutritional Asmnt/Malnutr-PDOC - Dietary Evaluation Malnutrition Findings (Please click <Entered> for more info): Nutritional Asmnt/Malnutrition Start: 05/18/20 14: 32 Text: Status: Complete Freq: Protocol: Document 05/18/20 14:33 KEITH (Rec: 05/18/20 14:37 KEITH [id number]) Nutritional Asmnt/Malnutrition Patient General Information Nutritional Screening Moderate Risk Diagnosis Acute Psychosis Pertinent Medical Hx/Surgical Hx HTN, DM, GERD, Dementia Subjective Information Pt is a 89-year-old male admitted on 05/14 d/t agitation and threats at home. Pt is eating an estimated 58% of meals since admit date (x4 days) Per Meal/Nutrition Activity Record. Dietary is currently providing an estimated 1900 kcals and 105 gm Pro, per Pt PO intake this is providing an estimated 1100 kcals and 60gm Pro to meet 70 % kcal and 94% Pro needs. Visited pt in room, he said food was fine, as good as it can be. 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 Anthropometrics HT: 59 WT: 142 LB (64.55 kg) BMI: 21.0 (normal) GI/ Skin Integrity GI: WNL, Soft, Flat, Non- tender BM: Not Noted I/O: 240/1 (+239) Skin: WNL Intact Venkatesh: 16 Diet Order: CCHO 75gm, Ground Estimated Energy Needs: ( Geriatric, CBW) 5232-9680 kcals (25-30 kcals/ kg) 65-80g Pro (1.0-1.2 g/kg) 6439-7823 ml (25-30 ml/kg) Current Diet Order/ Nutrition Support CCHO 75gm, Ground Pertinent Medications Maalox (PRN), Glutose 40% (PRN ), Glucagen (PRN), INS-SS, MOM (PRN), Theragran, Protonix, Cozaar, Januvia Pertinent Labs 05/14: Chol 224, Trig 178, LDL 161, HDL 40 POC Glucose (last 24 hours): 105, 223, 210, 133, 175 05/06: Glucose 136, AST 14 Nutritional Hx/Data Height 1.75 m Height (Calculated Centimeters) 175.3 Current Weight (lbs) 64.41 kg Weight (Calculated Kilograms) 64.4 Weight (Calculated Grams) 06425.1 [place] Body Weight 160 LB (72.73 kg) % [place] Body Weight 89 Body Mass Index (BMI) 20.9 Weight Status Approriate GI Symptoms Last BM Not Noted Skin Integrity/Comment: Skin: WNL Intact Venkatesh: 16 Current %PO Fair (50-74%) Estimated Nutritional Goals BEE in Kcals: Using Current wt Calories/Kcals/Kg 25-30 Kcals Calculated 2075-5444 Protein: Using Current wt Protein g/k.0-1.2 Protein Calculated 65-80 Fluid: ml 8646-2477 ml (25-30 ml/kg) Nutritional Problem 1. Problem Problem Impaired nutrient utilization Etiology r/t endocrine dysfunction Signs/Symptoms: aeb Hx DM and POC Glucose ( last 24 hours): 105, 223, 210, 133, 175. Malnutrition Related to Morbid Obesity Malnutrition related to morbid obesity No Intervention/Recommendation Comments 1.Continue CCHO 75gm, Ground diet as tolerated. 2.Continue antihyperglycemic medications for glucose control per MD order. Expected Outcomes/Goals Expected Outcomes/Goals 1.PO intake to meet 75% of estimated nutritional needs. 2.Monitor PO intake, wt, nutrition related labs, and skin integrity. 3.F/U as low risk in 7-10 days , 05/25-05/28.
[2020-05-21] MEDS: INSULIN LISPRO SLIDING SCALE 100 UNITS/ML UNIT SUBQ SCH ×4 (06:49→20:44)
[2020-05-21] MEDS: Multivitamin Tab PO SCH (09:33)
[2020-05-21] MEDS: Pantoprazole 40 mg EC Tab PO SCH (09:33)
[2020-05-21] MEDS: Timolol 0.25% Ophth Soln 5 mL Bottle EACH EYE SCH (11:15)
--- NOTE | 2020-05-21 13:13 | General Progress Note ---
Subjective - Review of Systems Service Date: 05/21/20 Subjective: resting comfortably no distress Objective - Results Recent Labs: Laboratory Last Values POC Glucose 201 MG/DL (70 - 105) H 05/21/20 11:55 Hemoglobin A1c 8.9 % (4.8-5.6) H 05/14/20 13:20 Triglycerides 178 mg/dL (30-150) H 05/14/20 13:20 Cholesterol 224 mg/dL (<200) H 05/14/20 13:20 LDL Cholesterol 161 mg/dL (0-129) H 05/14/20 13:20 HDL Cholesterol 40 mg/dL (>45) L 05/14/20 13:20 Coronavirus (PCR) NOT DETECTED (NOT DETECTD) 05/14/20 11:50 - Physical Exam Vitals and I&O: Vital Signs Temp 97.8 F 05/21/20 06:19 Pulse 104 05/21/20 09:32 Resp 16 05/21/20 08:00 BP 105/64 05/21/20 09:32 Pulse Ox 99 05/21/20 06:19 Intake & Output 05/20/20 05/21/20 05/21/20 18:59 06:59 18:59 Intake Total 900 144 Balance 900 144 Intake: Oral 900 144 Other: # Voids 3 2 # Bowel Movements 1 0 Stool Characteristics Formed Formed Active Medications: Current Medications Acetaminophen (Tylenol) 650 mg PO Q4H PRN PRN Reason: Pain (Mild 1-3) Stop: 07/13/20 10:45 Acetaminophen (Tylenol Extra Strength) 1,000 mg PO Q6H PRN PRN Reason: Pain (Moderate 4-6) Stop: 07/13/20 10:45 Last Admin: 05/15/20 21:23 Dose: 1,000 mg Al Hydrox/Mg Hydrox/Simethicone (Maalox) 30 ml PO Q4HR PRN PRN Reason: GI DISTRESS Stop: 07/13/20 10:45 Dextrose (Glutose 40%) 18.75 gm PO PRN PRN PRN Reason: BS Below 70 if tolerate po Stop: 07/13/20 19:56 Glucagon (Glucagen) 1 mg IM PRN PRN PRN Reason: BS Below 70 if not tolerate po Stop: 07/13/20 19:56 Ibuprofen (Motrin) 400 mg PO Q4H PRN PRN Reason: Pain (Severe 7-10) Stop: 07/13/20 10:45 Last Admin: 05/18/20 07:48 Dose: 400 mg Insulin Human Lispro (Humalog Insulin Sliding Scale) 0 units SUBQ ACHS [facility]; Protocol Stop: 07/13/20 20:59 Last Admin: 05/21/20 12:05 Dose: 4 units Losartan Potassium (Cozaar) 100 mg PO DAILY [facility] Stop: 07/14/20 08:59 Last Admin: 05/21/20 09:32 Dose: 100 mg Magnesium Hydroxide (Milk Of Magnesia) 30 ml PO HS PRN PRN Reason: Constipation Multivitamins/Vitamin C (Theragran) 1 tab PO DAILY [facility] Stop: 07/14/20 08:59 Last Admin: 05/21/20 09:33 Dose: 1 tab Pantoprazole Sodium (Protonix) 40 mg PO DAILY [facility] Stop: 07/14/20 08:59 Last Admin: 05/21/20 09:33 Dose: 40 mg Sitagliptin Phosphate (Januvia) 100 mg PO DAILY [facility] Stop: 07/14/20 08:59 Last Admin: 05/21/20 09:33 Dose: 100 mg Timolol Maleate (Timoptic 0.25% Ophth Soln) 1 drop EACH EYE DAILY [facility] Stop: 07/14/20 08:59 Last Admin: 05/21/20 11:15 Dose: 1 drop Zolpidem Tartrate (Ambien) 5 mg PO HS PRN PRN Reason: Insomnia Stop: 07/13/20 10:45 Last Admin: 05/15/20 21:24 Dose: 5 mg General: No acute distress HEENT: PERRLA, EOMI Neck: Supple, JVD Cardiovascular: Regular rate, Normal S1, Normal S2 Lungs: Clear to auscultation Abdomen: Bowel sounds, Soft Assessment/Plan - Assessment Assessment: 1.HTN. 2.DM 3.DJD. 4.DEMENTIA - Plan Plan: continue current treatment Nutritional Asmnt/Malnutr-PDOC - Dietary Evaluation Malnutrition Findings (Please click <Entered> for more info): Nutritional Asmnt/Malnutrition Start: 05/18/20 14: 32 Text: Status: Complete Freq: Protocol: Document 05/18/20 14:33 KEITH (Rec: 05/18/20 14:37 KEITH [email or web address]) Nutritional Asmnt/Malnutrition Patient General Information Nutritional Screening Moderate Risk Diagnosis Acute Psychosis Pertinent Medical Hx/Surgical Hx HTN, DM, GERD, Dementia Subjective Information Pt is a 89-year-old male admitted on 05/14 d/t agitation and threats at home. Pt is eating an estimated 58% of meals since admit date (x4 days) Per Meal/Nutrition Activity Record. Dietary is currently providing an estimated 1900 kcals and 105 gm Pro, per Pt PO intake this is providing an estimated 1100 kcals and 60gm Pro to meet 70 % kcal and 94% Pro needs. Visited pt in room, he said food was fine, as good as it can be. 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 Anthropometrics HT: 59 WT: 142 LB (64.55 kg) BMI: 21.0 (normal) GI/ Skin Integrity GI: WNL, Soft, Flat, Non- tender BM: Not Noted I/O: 240/1 (+239) Skin: WNL Intact Venkatesh: 16 Diet Order: [facility] 75gm, Ground Estimated Energy Needs: ( Geriatric, CBW) 3866-2816 kcals (25-30 kcals/ kg) 65-80g Pro (1.0-1.2 g/kg) 1237-3626 ml (25-30 ml/kg) Current Diet Order/ [facility], [facility] Pertinent Medications Maalox (PRN), Glutose 40% (PRN ), Glucagen (PRN), INS-SS, MOM (PRN), Theragran, Protonix, Cozaar, Januvia Pertinent Labs 05/14: Chol 224, Trig 178, LDL 161, HDL 40 POC Glucose (last 24 hours): 105, 223, 210, 133, 175 05/06: Glucose 136, AST 14 Nutritional Hx/Data Height 1.75 m Height (Calculated Centimeters) 175.3 Current Weight (lbs) 64.41 kg Weight (Calculated Kilograms) 64.4 Weight (Calculated Grams) 68879.1 [place] Body Weight 160 LB (72.73 kg) % [place] Body Weight 89 Body Mass Index (BMI) 20.9 Weight Status Approriate GI Symptoms Last BM Not Noted Skin Integrity/Comment: Skin: WNL Intact Venkatesh: 16 Current %PO Fair (50-74%) Estimated Nutritional Goals BEE in Kcals: Using Current wt Calories/Kcals/Kg 25-30 Kcals Calculated 1582-0209 Protein: Using Current wt Protein g/k.0-1.2 Protein Calculated 65-80 Fluid: ml 4773-4344 ml (25-30 ml/kg) Nutritional Problem 1. Problem Problem Impaired nutrient utilization Etiology r/t endocrine dysfunction Signs/Symptoms: aeb Hx DM and POC Glucose ( last 24 hours): 105, 223, 210, 133, 175. Malnutrition Related to Morbid Obesity Malnutrition related to morbid obesity No Intervention/Recommendation Comments 1.Continue CCHO 75gm, Ground diet as tolerated. 2.Continue antihyperglycemic medications for glucose control per MD order. Expected Outcomes/Goals Expected Outcomes/Goals 1.PO intake to meet 75% of estimated nutritional needs. 2.Monitor PO intake, wt, nutrition related labs, and skin integrity. 3.F/U as low risk in 7-10 days , 05/25-05/28.
--- NOTE | 2020-05-21 14:24 | Progress Notes ---
DATE: 05/21/2020 SUBJECTIVE: Staff was spoken to. The patient is interviewed. Mood is noted to be anxious. The patient's insight and judgment are noted to be improving. Impulse control is noted to be fair. No aggressive behaviors noted. The patient has been very tired and has been lying down in the bed most of the time. In view of the tiredness and the psychomotor retardation, I have decided to hold off on the psychotropic medications and the patient is going to be followed up with the supportive therapy. JOB# [id number]
[2020-05-21] MEDS: Acetaminophen 500 MG TAB PO PRN (19:15)
[2020-05-22] MEDS: INSULIN LISPRO SLIDING SCALE 100 UNITS/ML UNIT SUBQ SCH ×4 (06:46→21:00)
[2020-05-22] MEDS: Pantoprazole 40 mg EC Tab PO SCH (09:06)
[2020-05-22] MEDS: Timolol 0.25% Ophth Soln 5 mL Bottle EACH EYE SCH (09:07)
[2020-05-22] MEDS: Multivitamin Tab PO SCH (09:07)
--- NOTE | 2020-05-22 10:25 | Progress Notes ---
DATE: 05/21/2020 PSYCHOLOGY PROGRESS NOTE SUBJECTIVE: The patient is seen in his room and is interviewed. The patient is somnolent, but arousable by touch. The patient presents as confused and anxious. The patient is asking about when he will be discharged. The patient was also asking questions about his medical condition. This is deferred to Dr. Gaines. The patient is isolative and withdrawn according to staff. The patient is staying in bed most of the time and appears very fatigued. OBJECTIVE: Mood is anxious. Affect is mood congruent and constricted. Thought process shows to be confused and markedly tangential. The patient denied any suicidal ideation, plan or intention. The patient denied any delusions, however , grandiosity is present. The patient's behavior is withdrawn and isolative. The patient is compliant with his medication. The patient continues to appear fatigued with psychomotor retardation. ASSESSMENT: The patient's psychosis and depression persist. PLAN: We provided coping strategies for phase of life issues. We provided reality orientation, differentiation and integration. We encouraged the patient to get out of bed and attend the milieu therapy and group therapy offered on the unit. The patient was unable to demonstrate the capacity to interact with this assembly instructions writer during the cognitive behavioral therapeutic approach. We provided motivational enhancement for the patient to become compliant with all aspects of his care and treatment. We will continue to follow up in 2-3 days if the patient is able to demonstrate the capacity to benefit. JOB# [id number] ABELARDO
--- NOTE | 2020-05-22 18:05 | General Progress Note ---
Subjective - Review of Systems Service Date: 05/22/20 Subjective: resting comfortably no distress Objective - Results Recent Labs: Laboratory Last Values POC Glucose 154 MG/DL (70 - 105) H 05/22/20 16:19 Hemoglobin A1c 8.9 % (4.8-5.6) H 05/14/20 13:20 Triglycerides 178 mg/dL (30-150) H 05/14/20 13:20 Cholesterol 224 mg/dL (<200) H 05/14/20 13:20 LDL Cholesterol 161 mg/dL (0-129) H 05/14/20 13:20 HDL Cholesterol 40 mg/dL (>45) L 05/14/20 13:20 Coronavirus (PCR) NOT DETECTED (NOT DETECTD) 05/14/20 11:50 - Physical Exam Vitals and I&O: Vital Signs Temp 96.7 F 05/22/20 15:34 Pulse 63 05/22/20 15:34 Resp 20 05/22/20 15:34 BP 152/74 05/22/20 15:34 Pulse Ox 93 05/22/20 15:34 Intake & Output 05/21/20 05/22/20 05/22/20 18:59 06:59 18:59 Intake Total 1200 240 Balance 1200 240 Intake: Oral 1200 240 Other: # Bowel Movements 1 0 Stool Characteristics Formed Formed Active Medications: Current Medications Acetaminophen (Tylenol) 650 mg PO Q4H PRN PRN Reason: Pain (Mild 1-3) Stop: 07/13/20 10:45 Acetaminophen (Tylenol Extra Strength) 1,000 mg PO Q6H PRN PRN Reason: Pain (Moderate 4-6) Stop: 07/13/20 10:45 Last Admin: 05/21/20 19:15 Dose: 1,000 mg Al Hydrox/Mg Hydrox/Simethicone (Maalox) 30 ml PO Q4HR PRN PRN Reason: GI DISTRESS Stop: 07/13/20 10:45 Dextrose (Glutose 40%) 18.75 gm PO PRN PRN PRN Reason: BS Below 70 if tolerate po Stop: 07/13/20 19:56 Glucagon (Glucagen) 1 mg IM PRN PRN PRN Reason: BS Below 70 if not tolerate po Stop: 07/13/20 19:56 Ibuprofen (Motrin) 400 mg PO Q4H PRN PRN Reason: Pain (Severe 7-10) Stop: 07/13/20 10:45 Last Admin: 05/18/20 07:48 Dose: 400 mg Insulin Human Lispro (Humalog Insulin Sliding Scale) 0 units SUBQ ACHS [facility]; Protocol Stop: 07/13/20 20:59 Last Admin: 05/22/20 16:22 Dose: 2 units Losartan Potassium (Cozaar) 100 mg PO DAILY [facility] Stop: 07/14/20 08:59 Last Admin: 05/22/20 09:06 Dose: 100 mg Magnesium Hydroxide (Milk Of Magnesia) 30 ml PO HS PRN PRN Reason: Constipation Multivitamins/Vitamin C (Theragran) 1 tab PO DAILY [facility] Stop: 07/14/20 08:59 Last Admin: 05/22/20 09:07 Dose: 1 tab Pantoprazole Sodium (Protonix) 40 mg PO DAILY [facility] Stop: 07/14/20 08:59 Last Admin: 05/22/20 09:06 Dose: 40 mg Sitagliptin Phosphate (Januvia) 100 mg PO DAILY [facility] Stop: 07/14/20 08:59 Last Admin: 05/22/20 09:06 Dose: 100 mg Timolol Maleate (Timoptic 0.25% Ophth Soln) 1 drop EACH EYE DAILY [facility] Stop: 07/14/20 08:59 Last Admin: 05/22/20 09:07 Dose: 1 drop Zolpidem Tartrate (Ambien) 5 mg PO HS PRN PRN Reason: Insomnia Stop: 07/13/20 10:45 Last Admin: 05/21/20 20:45 Dose: 5 mg General: No acute distress HEENT: PERRLA, EOMI Neck: Supple, JVD Cardiovascular: Regular rate, Normal S1, Normal S2 Lungs: Clear to auscultation Abdomen: Bowel sounds, Soft Assessment/Plan - Assessment Assessment: 1.HTN. 2.DM 3.DJD. 4.DEMENTIA - Plan Plan: continue current treatment Nutritional Asmnt/Malnutr-PDOC - Dietary Evaluation Malnutrition Findings (Please click <Entered> for more info): Nutritional Asmnt/Malnutrition Start: 05/18/20 14: 32 Text: Status: Complete Freq: Protocol: Document 05/18/20 14:33 KEITH (Rec: 05/18/20 14:37 KEITH [email or web address]) Nutritional Asmnt/Malnutrition Patient General Information Nutritional Screening Moderate Risk Diagnosis Acute Psychosis Pertinent Medical Hx/Surgical Hx HTN, DM, GERD, Dementia Subjective Information Pt is a 89-year-old male admitted on 05/14 d/t agitation and threats at home. Pt is eating an estimated 58% of meals since admit date (x4 days) Per Meal/Nutrition Activity Record. Dietary is currently providing an estimated 1900 kcals and 105 gm Pro, per Pt PO intake this is providing an estimated 1100 kcals and 60gm Pro to meet 70 % kcal and 94% Pro needs. Visited pt in room, he said food was fine, as good as it can be. 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 Anthropometrics HT: 59 WT: 142 LB (64.55 kg) BMI: 21.0 (normal) GI/ Skin Integrity GI: WNL, Soft, Flat, Non- tender BM: Not Noted I/O: 240/1 (+239) Skin: WNL Intact Venkatesh: 16 [facility], [facility] Estimated Energy Needs: ( Geriatric, CBW) 7518-7941 kcals (25-30 kcals/ kg) 65-80g Pro (1.0-1.2 g/kg) 4709-1467 ml (25-30 ml/kg) Current Diet Order/ Nutrition Support [facility] 75[facility], Ground Pertinent Medications Maalox (PRN), Glutose 40% (PRN ), Glucagen (PRN), INS-SS, MOM (PRN), Theragran, Protonix, Cozaar, Januvia Pertinent Labs 05/14: Chol 224, Trig 178, LDL 161, HDL 40 POC Glucose (last 24 hours): 105, 223, 210, 133, 175 05/06: Glucose 136, AST 14 Nutritional Hx/Data Height 1.75 m Height (Calculated Centimeters) 175.3 Current Weight (lbs) 64.41 kg Weight (Calculated Kilograms) 64.4 Weight (Calculated Grams) 39217.1 [place] Body Weight 160 LB (72.73 kg) % [place] Body Weight 89 Body Mass Index (BMI) 20.9 Weight Status Approriate GI Symptoms Last BM Not Noted Skin Integrity/Comment: Skin: WNL Intact Venkatesh: 16 Current %PO Fair (50-74%) Estimated Nutritional Goals BEE in Kcals: Using Current wt Calories/Kcals/Kg 25-30 Kcals Calculated 0122-7755 Protein: Using Current wt Protein g/k.0-1.2 Protein Calculated 65-80 Fluid: ml 6826-3055 ml (25-30 ml/kg) Nutritional Problem 1. Problem Problem Impaired nutrient utilization Etiology r/t endocrine dysfunction Signs/Symptoms: aeb Hx DM and POC Glucose ( last 24 hours): 105, 223, 210, 133, 175. Malnutrition Related to Morbid Obesity Malnutrition related to morbid obesity No Intervention/Recommendation Comments 1.Continue CCHO 75gm, Ground diet as tolerated. 2.Continue antihyperglycemic medications for glucose control per MD order. Expected Outcomes/Goals Expected Outcomes/Goals 1.PO intake to meet 75% of estimated nutritional needs. 2.Monitor PO intake, wt, nutrition related labs, and skin integrity. 3.F/U as low risk in 7-10 days , 05/25-05/28.
--- NOTE | 2020-05-22 18:58 | Progress Notes ---
DATE: 05/22/2020 SUBJECTIVE: Staff was spoken to. The patient is interviewed. Mood is noted to be anxious. The patient is not suicidal or homicidal. No aggressive behavior is noted. The patient's sleep and appetite are noted to be improving. No side effects to the p.r.n. medications are noted. The patient's family is mentioning that they can take care of the patient, possibly the patient is going to be placed. JOB# [id number]
[2020-05-23] MEDS: INSULIN LISPRO SLIDING SCALE 100 UNITS/ML UNIT SUBQ SCH ×3 (06:52→17:34)
[2020-05-23] MEDS: Pantoprazole 40 mg EC Tab PO SCH (09:17)
[2020-05-23] MEDS: Multivitamin Tab PO SCH (09:17)
[2020-05-23] MEDS: Timolol 0.25% Ophth Soln 5 mL Bottle EACH EYE SCH (09:17)
--- NOTE | 2020-05-23 19:36 | Progress Notes ---
DATE: 05/23/2020 PSYCHIATRIC PROGRESS NOTE SUBJECTIVE: Staff was spoken to. The patient is interviewed. Mood is noted to be less irritable. Affect is appropriate. The patient has short-term memory. Long-term memory seems to be slightly better today. The patient is talking about how much of ____ that he has placed from here, from [place] to [place]. Coping skills at this time are noted to be fair. The patient is not presenting with any aggressive behavior. With the low dose of the medication, the patient was too drowsy and hence I have discontinued the medication, but at this time, the patient seems to be a little bit more animated and possibly we are going to be closely monitoring the patient and then look for placement of this patient. JOB# [id number]
--- NOTE | 2020-05-24 11:19 | Progress Notes ---
DATE: 05/23/2020 PSYCHOLOGY PROGRESS NOTE SUBJECTIVE: The patient is seen in his room. The patient is in bed and is somnolent, but arousable verbally. The patient is interviewed. The patient presents as less irritable and states that he does not feel depressed. The patient continues to respond to clinical questions tangentially. Staff reports no aggressive behavior over the past 2-3 days and that he has been redirectable. OBJECTIVE: Mood is less irritable and less depressed. Affect is broad. Thought process shows to be markedly tangential and confused. The patient denied any suicidal ideation, plan or intention. He denied any auditory or visual hallucinations or delusions. The patient seems to be drowsy, but is responding. The patient continues to mostly stay in bed. ASSESSMENT: The patient's depression seems to be resolving. Environmental Conflict Manager and the attending psychiatrist are continuing to look for placement for this patient. TREATMENT PLAN: The patient is most likely discharging today according to the staff. The patient's placement has been established, but not yet confirmed. We provided coping strategies for phase of life issues. We provided reality orientation, differentiation and integration. The record indicates the patient has been discontinued on medication that causes him to be drowsy. We will continue to provide supportive psychotherapy. The patient is most likely discharging today or tomorrow. Therefore, no followup is indicated at this time. Thank you, Dr. Arias, for this consult and the opportunity to participate with you in this patient's care. [facility]# [id number]
== END 2020-05-23 17:15 | disposition short-term general hospital (02) | DRG 884 ==
LOC: GERO 08:51
PROVIDERS: ADMIT Psychiatry & Neurology Psychiatry; ATTEND Psychiatry & Neurology Psychiatry
DX: F03.91 Unspecified dementia, unspecified severity, with behavioral disturbance (principal); M19.90 Unspecified osteoarthritis, unspecified site; E11.9 Type 2 diabetes mellitus without complications; I10 Essential (primary) hypertension; K21.9 Gastro-esophageal reflux disease without esophagitis; F32.9 Major depressive disorder, single episode, unspecified; Z20.828 Contact with and (suspected) exposure to other viral communicable diseases
CPT/HCPCS: 36415-UA; 80061-TC; 82948-90; 83036-90; G0410; U0003-CS; Z7610